=== PATIENT | female | born 1965 | race Caucasian/White ===

== ENCOUNTER 2020-02-25 10:36 | Emergency (ER) | payer OTHER ==
[~2020-02-25] VITALS: Ht 160 cm; Wt 74.8 kg
[2020-02-25 11:19] VITALS: BP 140/98
--- NOTE | 2020-02-25 11:23 | NUR ---
Patient given urine cup and ambulated to lobby
[2020-02-25] MEDS ORDERED: KETOROLAC 30 MG/ML VIAL IM ONE (12:05)
[2020-02-25 12:33] LABS: BASOPHILS # (AUTO) 0.1 K/uL (0.00-0.22); EOSINOPHILS # (AUTO) 0.1 K/uL (0-0.4); EOSINOPHILS % (AUTO) 1.1 % (0.0-4.0); HEMATOCRIT 43.9 % (36-48); HEMOGLOBIN 15.4 g/dL (12.0-16.0); LYMPHOCYTES # (AUTO) 2.4 K/uL (2.5-16.5); LYMPHOCYTES % (AUTO) 26.3 % (20.5-51.1); MEAN CORPUSCULAR HEMOGLOBIN 33 pg (27-31); MEAN CORPUSCULAR HGB CONC 35 g/dL (33-37); MEAN CORPUSCULAR VOLUME 95.4 fL (80-94); MONOCYTES # (AUTO) 0.8 K/uL (0.8-1.0); MONOCYTES % (AUTO) 8.6 % (1.7-9.3); NEUTROPHILS # (AUTO) 5.9 K/uL (1.8-7.7); PLATELET COUNT (AUTO) 294 K/uL (140-450); RED CELL DISTRIBUTION WIDTH 12.9 % (11.6-13.7); WHITE BLOOD COUNT (AUTO) 9.3 K/uL (4.8-10.8)
--- NOTE | 2020-02-25 14:23 | NUR ---
Patient discharged with v/s stable. Written and verbal after care instructions given and explained. Patient alert, oriented and verbalized understanding of instructions. Ambulatory with steady gait. All questions addressed prior to discharge. ID band removed. Patient advised to follow up with PMD. Rx of provera given. Patient educated on indication of medication including possible reaction and side effects. Opportunity to ask questions provided and answered.
[2020-02-25] MEDS ORDERED: KETOROLAC 30 MG/ML VIAL ONE (15:33)
== END 2020-02-25 14:23 | disposition home or self-care (01) ==
LOC: MED 10:36
DX: N93.8 Other specified abnormal uterine and vaginal bleeding (principal); Z90.49 Acquired absence of other specified parts of digestive tract
CPT/HCPCS: 36415; 76830; 85025; 86886; 86900; 86901; 99284; J1885